=== PATIENT | female | born 1955 | race Caucasian/White ===

== ENCOUNTER 2020-12-04 11:22 | Emergency (ER) | payer BC ==
[~2020-12-04] VITALS: Ht 167.6 cm; Wt 81.8 kg
[2020-12-04 11:53] VITALS: Ht 167.6 cm; Wt 81.8 kg
[2020-12-04] MEDS ORDERED: CARAFATE1 G PO (11:54)
[2020-12-04] MEDS ORDERED: TRIAMTERENE-HC1 EAC3 PO (11:54)
[2020-12-04] MEDS ORDERED: PAMELOR75 MG PO (11:54)
[2020-12-04] MEDS ORDERED: SYNTHROID150 MCG PO (11:54)
[2020-12-04] MEDS ORDERED: [UNRECOGNIZED DRUG - OTHER] PO (11:55)
[2020-12-04] MEDS ORDERED: SPIRIVA RESPIMAT4 G1 INH (11:55)
[2020-12-04] MEDS ORDERED: SINGULAIR10 MG PO (11:56)
[2020-12-04 12:32] LABS: SARS-CoV-2 ANTIGEN NEGATIVE- SARS-COV-2 (NEGATIVE)
[2020-12-04 13:38] LABS: BASOPHILS 0.6 % (0-2); EOSINOPHILS 1.5 % (0-7); HEMATOCRIT 41.6 % (36.0-48.0); HEMOGLOBIN 13.8 g/dL (12-16); LYMPHOCYTES 32.5 % (15-50); MCH 28.7 pg (26.0-34.0); MCHC 33.2 g/dL (31.0-37.0); MCV 86.4 fL (80.0-100.0); MEAN PLATELET VOLUME 7.1 fL (7.4-10.4); MONOCYTES 11.5 % (2-11); NEUTROPHILS 53.9 % (40-80); PLATELET COUNT 294 10x3/uL (130-400); RBC 4.82 10x6/uL (4.00-5.40); RDW 14.5 % (11.5-14.5)
[2020-12-04 13:39] LABS: ANION GAP 10.9 mmol/L (8-16); CALCIUM 8.9 mg/dL (8.5-10.1); CARBON DIOXIDE 28.5 mmol/L (21.0-32.0); POTASSIUM - SERUM 3.4 mmol/L (3.5-5.1)
[2020-12-04 13:45] LABS: ALBUMIN 3.8 g/dL (3.4-5.0); BILIRUBIN - TOTAL 0.28 mg/dL (0.2-1.3); PROTEIN - SERUM 7.5 g/dL (6.4-8.2)
[2020-12-04] MEDS ORDERED: AUGMENTIN 875-11 TAB PO (14:08)
[2020-12-04] MEDS ORDERED: DOXYCYCLINE HY100 M2 PO (14:08)
[2020-12-04] MEDS ORDERED: ALBUTEROL SULF8.5 GM INH (14:08)
[2020-12-04 14:36] VITALS: BP 116/83
== END 2020-12-04 14:37 | disposition home or self-care (01) ==
LOC: D.ER 11:22
PROVIDERS: Family Medicine
DX: J18.9 Pneumonia, unspecified organism (principal); E87.6 Hypokalemia; Z20.822 Contact with and (suspected) exposure to COVID-19; B34.9 Viral infection, unspecified; I10 Essential (primary) hypertension; I25.10 Atherosclerotic heart disease of native coronary artery without angina pectoris; J44.9 Chronic obstructive pulmonary disease, unspecified

== ENCOUNTER 2020-12-07 14:35 | Emergency (ER) | payer SELFPAY ==
[~2020-12-07] VITALS: Ht 167.6 cm; Wt 80.9 kg
[~2020-12-07 14:35] MED LIST: ALBUTEROL SULF8.5 GM INH; AUGMENTIN 875-11 TAB PO; CARAFATE1 G PO; DOXYCYCLINE HY100 M2 PO; PAMELOR75 MG PO; SINGULAIR10 MG PO; SPIRIVA RESPIMAT4 G1 INH; SYNTHROID150 MCG PO; TRIAMTERENE-HC1 EAC3 PO; [UNRECOGNIZED DRUG - OTHER] PO
[2020-12-07 14:39] VITALS: Ht 167.6 cm; Wt 80.9 kg
[2020-12-07 15:49] LABS: CALC OSMOLALITY 268 mosm/kg (275-300); CARBON DIOXIDE 28.6 mmol/L (21.0-32.0); CHLORIDE - SERUM 98 mmol/L (98-107); CREATININE - SERUM 1.1 mg/dL (0.6-1.3); GLUCOSE 102 mg/dL (74-106); POTASSIUM - SERUM 3.2 mmol/L (3.5-5.1); SODIUM 135 mmol/L (136-145); UREA NITROGEN 11 mg/dL (7-18); eGFR NON AFRICAN AMERICAN 53 mL/min (90-120)
[2020-12-07 16:07] LABS: ALBUMIN 3.5 g/dL (3.4-5.0); ALKALINE PHOSPHATASE 88 U/L (30-120); ALT (SGPT) 33 U/L (10-68); BILIRUBIN - TOTAL 0.24 mg/dL (0.2-1.3); CKMB 0.3 U/L (0.0-3.6); CREATINE KINASE 43 UL (21-215); PROTEIN - SERUM 7.3 g/dL (6.4-8.2); TROPONIN-I < 0.017 ng/mL (0.000-0.060)
[2020-12-07 16:21] LABS: BASOPHILS 0.9 % (0-2); HEMATOCRIT 42.4 % (36.0-48.0); HEMOGLOBIN 14.1 g/dL (12-16); LYMPHOCYTES 36.4 % (15-50); MCHC 33.2 g/dL (31.0-37.0); MCV 87.5 fL (80.0-100.0); NEUTROPHILS 49.7 % (40-80); PLATELET COUNT 269 10x3/uL (130-400); RBC 4.85 10x6/uL (4.00-5.40); RDW 14.7 % (11.5-14.5); WBC 6.7 10x3/uL (4.8-10.8)
[2020-12-07 21:18] VITALS: BP 135/86
== END 2020-12-07 21:19 | disposition home or self-care (01) ==
LOC: D.ER 14:35
PROVIDERS: Family Medicine
DX: R05 Cough (principal); I10 Essential (primary) hypertension; J44.9 Chronic obstructive pulmonary disease, unspecified; I25.10 Atherosclerotic heart disease of native coronary artery without angina pectoris